=== PATIENT | female | born 1940 | race Caucasian/White ===

== ENCOUNTER 2023-07-23 12:06 | Emergency (ER) | payer MEDICARE, MEDICAID ==
[~2023-07-23] VITALS: Ht 165.1 cm; Wt 47.0 kg
[2023-07-23 12:12] VITALS: O2SAT 99
[2023-07-23 12:35] LABS: BASOPHILS % 0.6 % (0.0-2.0); HEMATOCRIT. 35.4 % (36.0-48.0); LYMPHOCYTES % 18.8 % (20.0-50.0); MEAN CORPUSCULAR HEMOGLOBIN 33.4 pg (28.0-32.0); MEAN CORPUSCULAR HGB CONC 33.8 g/dL (31.0-37.0); MEAN CORPUSCULAR VOLUME 98.7 fL (81.0-99.0); MEAN PLATELET VOLUME 8.9 fl (7.4-10.4); MONOCYTES % 6.9 % (2.0-8.0); NEUTROPHILS % 72.7 % (40.0-76.0); PLATELET 178 x1000/uL (130-400); RED BLOOD CELL COUNT 3.58 mill/uL (4.2-5.4); RED CELL DISTRIBUTION WIDTH 13.8 % (11.6-14.6); WHITE BLOOD COUNT 5.6 x1000/uL (4.5-11.0)
[2023-07-23 12:49] LABS: CHLORIDE 106 mEq/L (98-107); INDEX HEMOLYSI 1 (1-3); INDEX ICTERIC 1 (1-4); INDEX LIPEMIC 1 (1-3); POTASSIUM 4.1 mEq/L (3.5-5.1); SODIUM 136 mEq/L (136-145)
[2023-07-23 12:59] LABS: ALANINE AMINOTRANSFERASE 18 IU/L (13-61); ALBUMIN 3.9 g/dL (3.4-5.0); ASPARTATE AMINOTRANSFERASE 21 IU/L (15-37); BILIRUBIN TOTAL 0.4 mg/dL (0.1-1.0); CALCIUM 9.1 mg/dL (8.5-10.1); CARBON DIOXIDE 25 mEq/L (21-32); CREATININE 1.7 mg/dL (0.6-1.3); GLUCOSE 95 mg/dL (70-105); PROTEIN TOTAL 7.1 g/dL (6.0-8.3); UREA NITROGEN BLOOD 31 mg/dL (7-21)
[2023-07-23 16:23] LABS: CLARITY URINE CLEAR (CLEAR); COLOR URINE YELLOW (YELLOW); GLUCOSE URINE NEGATIVE (NEGATIVE); KETONES URINE NEGATIVE (NEGATIVE); LEUKOCYTE ESTERASE URINE NEGATIVE (NEGATIVE); NITRITE URINE NEGATIVE (NEGATIVE); OCCULT BLOOD URINE NEGATIVE (NEGATIVE); PH URINE 7.5 (4.5-8.0); PROTEIN URINE NEGATIVE (NEGATIVE); SPECIFIC GRAVITY URINE 1.009 (1.005-1.030); UROBILINOGEN URINE 0.2 E.U./dL (0.2-1.0)
[2023-07-23 17:00] VITALS: BP 182/78; PULSE 79; RESP 16; TEMP 98.6
[2023-07-23] MEDS ORDERED: DICYCLOMINE HCL 10MG/ML 2ML VIAL IM NR (17:00)
== END 2023-07-23 17:05 | disposition home or self-care (01) ==
LOC: ER 12:06
DX: R10.84 Generalized abdominal pain (principal); I10 Essential (primary) hypertension
CPT/HCPCS: 80053; 81003; 83605; 83690; 85025; 85610; 36415; 74176; 96372; 99285; J0500; Z7610

== ENCOUNTER 2024-11-09 18:37 | Emergency (ER) | payer MEDICARE, MEDICAID ==
[~2024-11-09] VITALS: Ht 165.1 cm; Wt 55.0 kg
[2024-11-09 18:44] VITALS: BP 160/72; PULSE 81; RESP 16; TEMP 98.4; O2SAT 100
== END 2024-11-10 00:19 | disposition left against medical advice (07) ==
LOC: ER 18:37
DX: M25.559 Pain in unspecified hip (principal); Z53.21 Procedure and treatment not carried out due to patient leaving prior to being seen by health care provider